=== PATIENT | female | born 1985 | race Caucasian/White ===

== ENCOUNTER 2017-05-02 10:06 | Emergency (ER) | payer OTHER, MEDICAID ==
[~2017-05-02] VITALS: Ht 157.5 cm; Wt 213.2 kg
[~2017-05-02 10:06] MED LIST: ACETAMINOPHEN-1 EAC1 PO; AMOXICILLIN 50500 MG PO; AUGMENTIN 875875 MG PO; AZITHROMYCIN 2250 MG PO; CEFTIN500 MG PO; DIFLUCAN150 MG PO; DOXYCYCLINE 10100 M1 PO; DOXYCYCLINE 10100 MG PO; DUONEB 2.5-0.5 M3 ML INH; FLEXERIL PO; IBUPROFEN 800800 MG PO; IRON325 PO; LEVAQUIN 500 M500 MG PO; LITHIUM CARBON300 M3; MACROBID 100 M100 M2 PO; MEDROLDOSEPACK; MEDROLDOSEPACK PO; NAPROSYN500 MG PO; NEBULIZER MISCELL; NOHOMEMEDICATIONS; NORCO 5-325 TA1 EACH PO; NORFLEX100 MG PO; PRENATAL; PROAIR HFA8.5 GM INH; PROMETHAZINE D480 ML PO; PROMETHAZINE-D120 ML PO; REVIA 50 MG TAB50 MG; TESSALON PERLE100 MG PO; ULTRAM 50MG TAB50 MG PO; VENTOLIN HFA INH8 GM IH; ZPAK PO
[2017-05-02] MEDS ORDERED: ZPAK PO (10:25)
[2017-05-02] MEDS ORDERED: PREDNISONE 20 M20 M1 PO (10:25)
[2017-05-02 10:29] VITALS: BP 166/94
== END 2017-05-02 10:30 | disposition home or self-care (01) ==
LOC: M.ERS 10:06
DX: J40 Bronchitis, not specified as acute or chronic (principal)

== ENCOUNTER 2017-10-09 15:59 | Observation (INO) | payer OTHER, MEDICAID ==
[~2017-10-09] VITALS: Ht 160 cm; Wt 233.1 kg
[~2017-10-09 15:59] MED LIST changes: +PREDNISONE 20 M20 M1 PO
[2017-10-09 16:06] VITALS: BP 160/67
[2017-10-09 16:27] LABS: ABSOLUTE BASOPHILS 0.1 thou/uL (0.0-0.2); ABSOLUTE EOSINOPHILS 0.3 thou/uL (0.0-0.7); ABSOLUTE LYMPHOCYTES 2.6 thou/uL (0.8-5.3); ABSOLUTE MONOCYTES 0.6 thou/uL (0.0-1.2); ABSOLUTE NEUTROPHILS 6.6 thou/uL (1.6-8.1); BASOPHILS 1.4 %; EOSINOPHILS 2.8 %; HEMATOCRIT 34.7 % (37.0-47.0); HEMOGLOBIN 11.1 gm/dL (12.0-15.0); LYMPHOCYTES 25.7 %; MCH 24.2 pg (26.0-34.0); MCHC 31.9 g/dL (28.0-37.0); MCV 75.8 fL (80.0-100.0); MONOCYTES 5.9 %; MPV 7.9 fl. (7.2-11.1); NUCLEATED RBCS 0 /100WBC; PLATELET COUNT* 327 thou/uL (150-400); POLYS 64.2 %; RBC 4.58 mil/uL (4.20-5.00); WBC 10.2 thou/uL (4.0-11.0)
[2017-10-09 17:22] LABS: ALBUMIN 2.8 g/dL (3.4-5.0); ALKALINE PHOSPHATASE 66 U/L (46-116); ANION GAP 9 mmol/L (7-16); BUN 11 mg/dL (7-18); CALCIUM 8.2 mg/dL (8.5-10.1); CHLORIDE 103 mmol/L (98-107); CO2 26 mmol/L (21-32); CREATININE 0.8 mg/dL (0.6-1.3); GLUCOSE 118 mg/dL (70-99); POTASSIUM 3.8 mmol/L (3.5-5.1); SGOT 14 U/L (15-37); SGPT 17 U/L (30-65); SODIUM 138 mmol/L (136-145); TOTAL BILIRUBIN 0.1 mg/dL (<0.1-1.0); TOTAL PROTEIN 7.6 g/dL (6.4-8.2); TROPONIN-I LEVEL <0.06 ng/mL (<0.06)
[2017-10-09 20:00] VITALS: BP 142/77
[2017-10-09 20:21] VITALS: BP 140/78
[2017-10-10 08:00] VITALS: BP 137/68
[2017-10-10] MEDS ORDERED: ASPIR 8181 MG PO (10:09)
[2017-10-10] MEDS ORDERED: LISINOPRIL10 MG PO (10:09)
--- NOTE | 2017-10-10 10:36 | EKG ---
[place] [address] ELECTROCARDIOGRAM REPORT Name: TRAVIS BACA NEAL Room: [address]#: [id number] Admission: 10/09/17 Attend Phys: Alysia Zavala MD Discharge: Date of : 81 Report #: [id number] THIS REPORT FOR: //name// [facility] ED Test Date: 2017-10-09 Test Time: 16:05:46 Pat Name: TRAVIS BACA Department: Room: Gender: F Billing Rep: : 1985 Requested By: Selene Graham Order Number: [id number] MD: Yves Medina Measurements Intervals Center Line Rate: 97 P: 50 AK: 148 QRS: 34 QRSD: 118 T: 4 QT: 369 QTc: 469 Interpretive Statements Sinus rhythm Probable left atrial enlargement Nonspecific intraventricular conduction delay Baseline wander in lead(s) V1,V2 No previous ECG available for comparison Electronically Signed On 10-10-2017 10:36:41 CDT by Yves Medina [email or web address] <ELECTRONICALLY SIGNED> By: Yves Medina MD, [facility] 10/10/17 1036 1605 1605 Yves Medina MD, [facility] /EPI
--- NOTE | 2017-10-10 10:38 | EKG ---
[place] [address] ELECTROCARDIOGRAM REPORT Name: PHUONGTRAVIS NEAL Room: [address]#: [id number] Admission: 10/09/17 Attend Phys: Alysia Zavala MD Discharge: Date of : 81 Report #: [id number] THIS REPORT FOR: //name// [facility] Test Date: 2017-10-10 Test Time: 08:02:56 Pat Name: TRAVIS BACA Department: Room: [address] Gender: F Waste Hand: : 1985 Requested By: Mark Hooker Order Number: [id number] MD: Yves Medina Measurements Intervals [place] Rate: 65 P: 54 IL: 153 QRS: 45 QRSD: 97 T: 22 QT: 429 QTc: 447 Interpretive Statements Sinus rhythm No previous ECG available for comparison Electronically Signed On 10-10-2017 10:38:47 CDT by Yves Medina [email or web address] <ELECTRONICALLY SIGNED> By: Yves Medina MD, [facility] 10/10/17 1038 0802 1 Yves Medina MD, FACC /EPI
[2017-10-10 10:53] VITALS: BP 137/68
[2017-10-10 11:30] VITALS: BP 133/71
--- NOTE | 2017-10-10 17:13 | EXE ---
[place] [address] STRESS ECHOCARDIOGRAM Name: TRAVIS BACA Room: [address] M..#: [id number] Admission: 10/09/17 Attend Phys: Alysia Zavala, Discharge: Date of : 81 Date of Service: 10/10/17 1713 Report #: [id number] THIS REPORT FOR: //name// APPROVED REPORT Study performed: 10/10/2017 16:05:57 Exam: Dobutamine Stress Echo Indication: Chest pain Patient Location: In-Patient Stress Nurse: Ina Clark RN Room #: [facility] Supervising Physician: Yves Medina MD Status: routine Ht: 5 ft 3 in HR: 78 bpm BP: 112/67 mmHg Rhythm: NSR Medical History Medical History: Obesity Cardiac Risk Factors: HTN Procedure The patient underwent a Pharmacological Stress Test using Dobutamine. Blood pressure, heart rate, and EKG were monitored. An Echocardiogram was performed by pulmonology technician in four stages in quad fashion. At peak stress, four selected images were obtained and placed side by side with resting images for comparison. Echo Enhancing Agent Indication: Endocardial border delineation Agent(s) / Amount(s) Used: Optison 8 cc Stress Test Details Stress Test: Pharmacological Stress Test using Dobutamine. HR Resting HR: 78 bpm Max Heart Rate (APMHR): 187 bpm Max HR Achieved: 160 bpm Target HR (85% APMHR): 158 bpm % of APMHR: 85 Recovery HR: 100 bpm HR response to stress: Normal [place] [address] STRESS ECHOCARDIOGRAM Name: TRAVIS BACA Room: [address]#: [id number] Admission: 10/09/17 Attend Phys: Aylsia Zavala, Discharge: Date of : 81 Date of Service: 10/10/17 1713 Report #: [id number] Resting BP: 112/67 mmHg Max BP: 135/84 mmHg Recovery BP: 121/76 mmHg ECG Resting ECG: Sinus Rhythm Stress ECG: Sinus Rhythm ST Change: Normal Recovery ECG: Sinus Rhythm Recovery ST Change: Normal Clinical Reason for Termination: Completed protocol Stress Symptoms: Chest pain Stress ECG Conclusion negative ecg Pre-Stress Echo The resting Echocardiogram showed normal left ventricular contractility with an estimated Ejection Fraction of about >55%. moderate LVH is present.Limited doppler evaluation is normal Post-Stress Echo 1. LV chamber size decreases. 2. LV contractility increases. 3. No new wall motion abnormality visualized. Conclusion Clinical Response: Non-ischemic Exercise Capacity: not assessed Stress ECG Response: Non-ischemic Stress Echo Images: Non-ischemic Negative dobutamine stress echo for ischemia Other Information Technically limited study due [place] [address] STRESS ECHOCARDIOGRAM Name: TRAVIS BACA Room: [address] M[address]R.#: [id number] Admission: 10/09/17 Attend Phys: Alysia Zavala, Discharge: Date of : 81 Date of Service: 10/10/171712 Report #: [id number] <Conclusion> Negative dobutamine stress echo for ischemia <ELECTRONICALLY SIGNED> By: Yvse Medina MD, FACC 10/10/171712 12 12 Yves Medina MD, FACC /INF
== END 2017-10-10 18:28 | disposition home or self-care (01) ==
LOC: M.ERS 15:59 → M.2W 17:52 → M.TBA-ER 17:52 → M.2W 20:00
PROVIDERS: Nurse Practitioner Family; ADMIT Internal Medicine
DX: R07.89 Other chest pain (principal); G89.29 Other chronic pain; M54.9 Dorsalgia, unspecified; I10 Essential (primary) hypertension; J45.909 Unspecified asthma, uncomplicated; R51 Headache; E66.01 Morbid (severe) obesity due to excess calories; Z87.891 Personal history of nicotine dependence; Z72.89 Other problems related to lifestyle

== ENCOUNTER 2018-03-20 16:46 | Emergency (ER) | payer OTHER ==
[~2018-03-20] VITALS: Ht 157.5 cm; Wt 214.1 kg
[~2018-03-20 16:46] MED LIST changes: +ASPIR 8181 MG PO; +LISINOPRIL10 MG PO
[2018-03-20] MEDS ORDERED: MEDROLDOSEPACK PO (18:00)
[2018-03-20] MEDS ORDERED: TESSALON PERLE100 M1 PO (18:00)
[2018-03-20] MEDS ORDERED: VENTOLIN HFA 1818 GM INH (18:00)
[2018-03-20 18:07] VITALS: BP 170/88
== END 2018-03-20 18:08 | disposition home or self-care (01) ==
LOC: M.ERS 16:46
DX: J40 Bronchitis, not specified as acute or chronic (principal)

== ENCOUNTER 2018-08-16 10:15 | Emergency (ER) | payer OTHER ==
[~2018-08-16] VITALS: Ht 162.6 cm; Wt 136.1 kg
[~2018-08-16 10:15] MED LIST changes: +TESSALON PERLE100 M1 PO; +VENTOLIN HFA 1818 GM INH
[2018-08-16] MEDS ORDERED: TESSALON PERLE100 MG PO (11:24)
[2018-08-16] MEDS ORDERED: MEDROLDOSEPACK PO (11:24)
[2018-08-16] MEDS ORDERED: ALBUTEROL2.5 MG/31 INH (11:24)
[2018-08-16 11:31] VITALS: BP 120/64
== END 2018-08-16 11:42 | disposition home or self-care (01) ==
LOC: M.ERS 10:15
DX: J20.9 Acute bronchitis, unspecified (principal)

== ENCOUNTER 2020-02-26 10:09 | Emergency (ER) | payer OTHER, MEDICAID ==
[~2020-02-26] VITALS: Ht 157.5 cm; Wt 215.5 kg
[~2020-02-26 10:09] MED LIST changes: +ALBUTEROL2.5 MG/31 INH
[2020-02-26 10:13] VITALS: BP 155/84
[2020-02-26] MEDS ORDERED: ZPAK PO (11:09)
[2020-02-26] MEDS ORDERED: PREDNISONE 20 M20 M1 PO (11:09)
[2020-02-26] MEDS ORDERED: VENTOLIN HFA 1818 GM INH (11:10)
== END 2020-02-26 11:16 | disposition home or self-care (01) ==
LOC: M.ERS 10:09
DX: U07.1 COVID-19 (principal)